=== PATIENT | female | born 1960 | race Hispanic/Latino ===

== ENCOUNTER 2017-06-24 17:29 | Inpatient (IN) | payer MEDICAID, OTHER ==
--- NOTE | 2017-06-24 17:49 | Emergency Department Report ---
ED General Adult HPI - General Stated complaint: RESPIRATORY ARREST Time Seen by Provider: 06/24/17 17:41 Source: EMS Mode of arrival: Stretcher Limitations: No Limitations - History of Present Illness Initial comments: A call went out to paramedics staff who arrives one half hour after the onset of the patient's symptoms. Paramedics state that the onset of the patient's symptoms was at approximately 1625. They do arrive and blue bagging the patient. They state that she did not become apneic but was hypoventilating just prior to their arrival so they initiated airway assist. They stated that the patient was poorly responsive at that time. They were called for an episode which consisted of difficulty in expressing herself (the patient) as well as global weakness. On their arrival the patient was able to speak but not fluently. She was able to tell them that she had a history of a heart attack and mitral valve prolapse. However just prior to arrival, she stopped communicating. They state that the patient was unable to hold things up with either hand. She had no apparent lateralizing sign. She had no facial weakness. Her speech was not specifically slurred. They did not witness any tonic-clonic movements. They also found the patient sugar to be approximately 150 and route to this facility. They state that her blood pressure on their arrival was quite elevated. However the patient's blood pressure as first measured here was just mildly elevated. On arrival the patient is having difficulty speaking. She speaks with a very low voice. She is able to follow commands to include bilateral hand grasp. She is not complaining of pain. The Ambu bag was removed and the patient was found to be spontaneously breathing. Her pulse oximetry was 100%. We raised her head up on the bed and continue her emergent workup. -: Sudden, This afternoon Associated Symptoms: weakness (generalized weakness) - Related Data Allergies Allergy/AdvReac Type Severity Reaction Status Date / Time Unable to Assess Allergy Unverified 06/24/17 17:45 ED Review of Systems ROS: Stated complaint: RESPIRATORY ARREST Other details as noted in HPI Comment: Unobtainable due to pts medical conditions ED Past Medical Hx - Past Medical History Additional medical history: "Myocardial infarction and mitral valve prolapse". - Social History Other Social History: Patient was at her work place when this event occurred. ED Physical Exam - General Limitations: Altered Mental Status General appearance: in no apparent distress, lethargic (mildly lethargic) - Head Head exam: Present: atraumatic, normocephalic - Eye Eye exam: Present: normal appearance, PERRL, EOMI. Absent: scleral icterus - ENT ENT exam: Present: mucous membranes moist - Neck Neck exam: Present: normal inspection, tenderness. Absent: meningismus - Respiratory Respiratory exam: Present: normal lung sounds bilaterally. Absent: respiratory distress - Cardiovascular Cardiovascular Exam: Present: regular rate, normal rhythm. Absent: systolic murmur, diastolic murmur, rubs, gallop - GI/Abdominal GI/Abdominal exam: Present: soft, normal bowel sounds. Absent: distended, tenderness, guarding, rebound, rigid - Extremities Exam Extremities exam: Present: normal inspection - Back Exam Back exam: Present: normal inspection - Neurological Exam Neurological exam: Present: altered, other (patient remains inadequately verbal. Her plantar response didn't seem to be slightly upgoing on the right and neutral on the left. She did hand grasp bilaterally.) - Psychiatric Psychiatric exam: Present: normal mood, flat affect - Skin Skin exam: Present: warm, dry, intact, normal color. Absent: rash ED Course Vital Signs 06/24/17 06/24/17 06/24/17 17:28 17:30 17:47 Temperature Pulse Rate 65 64 Respiratory 16 18 Rate Blood Pressure 143/79 134/72 Blood Pressure [Left] O2 Sat by Pulse 99 99 98 Oximetry 06/24/17 06/24/17 06/24/17 17:50 18:00 18:10 Temperature Pulse Rate 61 62 66 Respiratory 17 19 16 Rate Blood Pressure 135/62 135/62 140/60 Blood Pressure [Left] O2 Sat by Pulse 95 96 98 Oximetry 06/24/17 06/24/17 06/24/17 18:20 18:30 18:40 Temperature Pulse Rate 61 61 58 L Respiratory 18 22 10 L Rate Blood Pressure 140/60 142/50 142/50 Blood Pressure [Left] O2 Sat by Pulse 97 98 Oximetry 06/24/17 18:54 Temperature 98.0 F Pulse Rate 62 Respiratory 14 Rate Blood Pressure Blood Pressure 146/60 [Left] O2 Sat by Pulse 99 Oximetry - Reevaluation(s) Reevaluation #1: The patient's deficits are related to her dysreflexia. She knows her name her age some mild and can write this state I presume. She was able to write fluid sentences on a clipboard. She does have some degree of generalized weakness. I don't think it's focal. She certainly has enough prehensile strength to right notes. I did not find the patient's presentation consistent with a stroke syndrome. I obtained a consult from telemetry-neurologist. He stated that the patient could have alexia without agraphia. He did examine the patient with the robot. His conclusion was that the presentation was really quite odd. He did not think it was likely to be consistent with stroke. He told me that he discussed the risks and benefits of TPA with the patient. He states that the patient strongly refused TPA understanding the risks and benefits. He did recommend that we admit the patient to complete a standard stroke workup. I spoke to . The patient will be admitted to the hospitalist service for further care and evaluation. She had no problems with her airway or breathing while under observation in the emergency room. 06/24/17 19:18 06/24/17 19:21 ED Medical Decision Making - Lab Data Result diagrams: 06/24/17 Unknown 06/24/17 Unknown Laboratory Results - last 24 hr 06/24/17 06/24/17 06/24/17 18:03 18:03 18:08 WBC RBC Hgb Hct MCV MCH MCHC RDW Plt Count Lymph % (Auto) [place] % (Auto) Eos % (Auto) Baso % (Auto) Lymph # [place] # Eos # Baso # Seg Neutrophils % Seg Neutrophils # PT INR APTT Sodium Potassium Chloride Carbon Dioxide Anion Gap BUN Creatinine Estimated GFR BUN/Creatinine Ratio Glucose POC Glucose 124 H Lactic Acid 1.40 Calcium Total Bilirubin Direct Bilirubin Indirect Bilirubin AST ALT Alkaline Phosphatase Ammonia 45.0 Total Creatine Kinase Troponin T Total Protein Albumin Albumin/Globulin Ratio TSH Urine Color Urine Turbidity Urine pH Ur Specific [place] Urine Protein Urine Glucose (UA) Urine Ketones Urine Blood Urine Nitrite Urine Bilirubin Urine Urobilinogen Ur Leukocyte Esterase Urine WBC (Auto) Urine RBC (Auto) U Epithel Cells (Auto) Urine Mucus Plasma/Serum Alcohol 06/24/17 06/24/17 06/24/17 18:20 Unknown Unknown WBC 8.3 RBC 4.67 Hgb 14.5 H Hct 43.0 H MCV 92 MCH 31 MCHC 34 RDW 13.7 Plt Count 158 Lymph % (Auto) Transportation Engineering Technician [place] % (Auto) Transportation Engineering Technician Eos % (Auto) Transportation Engineering Technician Baso % (Auto) Transportation Engineering Technician Lymph # Transportation Engineering Technician [place] # Transportation Engineering Technician Eos # Transportation Engineering Technician Baso # Transportation Engineering Technician Seg Neutrophils % Transportation Engineering Technician Seg Neutrophils # Transportation Engineering Technician PT 12.7 INR 0.96 APTT 27.5 Sodium Potassium Chloride Carbon Dioxide Anion Gap BUN Creatinine Estimated GFR BUN/Creatinine Ratio Glucose POC Glucose Lactic Acid Calcium Total Bilirubin Direct Bilirubin Indirect Bilirubin AST ALT Alkaline Phosphatase Ammonia Total Creatine Kinase Troponin T Total Protein Albumin Albumin/Globulin Ratio TSH Urine Color Straw Urine Turbidity Clear Urine pH 6.0 Ur Specific [place] 1.005 Urine Protein <15 mg/dl Urine Glucose (UA) Neg Urine Ketones Neg Urine Blood Sm Urine Nitrite Neg Urine Bilirubin Neg Urine Urobilinogen < 2.0 Ur Leukocyte Esterase Neg Urine WBC (Auto) 1.0 Urine RBC (Auto) < 1.0 U Epithel Cells (Auto) 1.0 Urine Mucus Few Plasma/Serum Alcohol 06/24/17 06/24/17 06/24/17 Unknown Unknown Unknown WBC RBC Hgb Hct MCV MCH MCHC RDW Plt Count Lymph % (Auto) [place] % (Auto) Eos % (Auto) Baso % (Auto) Lymph # [place] # Eos # Baso # Seg Neutrophils % Seg Neutrophils # PT INR APTT Sodium 140 Potassium 4.1 Chloride 102.6 Carbon Dioxide 22 Anion Gap 20 BUN 14 Creatinine 0.8 Estimated GFR > 60 BUN/Creatinine Ratio 17.50 Glucose 123 H POC Glucose Lactic Acid Calcium 8.9 Total Bilirubin 0.20 Direct Bilirubin < 0.2 Indirect Bilirubin 0.0 AST 14 ALT 11 Alkaline Phosphatase 69 Ammonia Total Creatine Kinase 78 Troponin T < 0.010 Total Protein 6.4 Albumin 4.1 Albumin/Globulin Ratio 1.8 TSH 0.702 Urine Color Urine Turbidity Urine pH Ur Specific [place] Urine Protein Urine Glucose (UA) Urine Ketones Urine Blood Urine Nitrite Urine Bilirubin Urine Urobilinogen Ur Leukocyte Esterase Urine WBC (Auto) Urine RBC (Auto) U Epithel Cells (Auto) Urine Mucus Plasma/Serum Alcohol < 0.01 - EKG Data -: EKG Interpreted by Me EKG shows normal: sinus rhythm, axis, intervals, QRS complexes, ST-T waves Rate: normal - EKG Data Interpretation: other (somewhat low voltage tracing) - Radiology Data Radiology results: report reviewed interpreted by me: CT the head showed no acute intracranial process. Chest x-ray showed mild left basilar atelectasis. Hazy left hemidiaphragm consistent with discoid atelectasis. It is mild. Critical care attestation.: If time is entered above; I have spent that time in minutes in the direct care of this critically ill patient, excluding procedure time. ED Disposition Clinical Impression: Atelectasis of left lung Altered mental status Qualifiers: Altered mental status type: unspecified Qualified Code(s): R41.82 - Altered mental status, unspecified Speech disturbance Qualifiers: Speech disturbance type: unspecified speech disturbance Qualified Code(s): R47.9 - Unspecified speech disturbances Disposition: DC-09 OP ADMIT IP TO THIS HOSP Is pt being admited?: Yes Does the pt Need Aspirin: Yes Condition: Stable Time of Disposition: 19:23
[2017-06-24 17:56] LABS: INR 0.96 (0.87-1.13); Partial Thromboplastin Time 27.5 Sec. (24.2-36.6)
--- NOTE | 2017-06-24 17:56 | Cat Scan Report ---
FINAL REPORT EXAM: CT HEAD/BRAIN WO CON HISTORY: Altered Mental Status TECHNIQUE: CT of the head was performed. No intravenous contrast was administered. PRIORS: None. FINDINGS: There is no evidence of intracranial hemorrhage. There is no edema, mass effect or midline shift. There are no abnormal extra-axial fluid collections. The ventricles are appropriate for brain volume. There is no skull fracture seen. The visualized aspects of the sinuses are clear. IMPRESSION: There is no acute intracranial abnormality identified.
[2017-06-24 18:04] LABS: Hemoglobin 14.5 gm/dl (10.1-14.3); Mean Corpuscular HGB Conc 34 % (30-34); Mean Corpuscular Hemoglobin 31 pg (28-32); Mean Corpuscular Volume 92 fl (79-97); Platelet Count 158 K/mm3 (140-440); Red Blood Count 4.67 M/mm3 (3.65-5.03); Red Cell Distribution Width 13.7 % (13.2-15.2); White Blood Count 8.3 K/mm3 (4.5-11.0)
--- NOTE | 2017-06-24 18:14 | XRay Report ---
FINAL REPORT EXAM: XR CHEST 1V AP HISTORY: htn TECHNIQUE: Chest, portable semi upright PRIORS: None. FINDINGS: There is some left basilar atelectasis. Remaining lungs are clear. There is no pneumothorax or pleural effusion seen. There is no cardiomegaly or vascular congestion. IMPRESSION: Mild left basilar atelectasis. Otherwise no acute abnormality seen.
[2017-06-24 18:21] LABS: Alanine Aminotransferase 11 units/L (7-56); Albumin 4.1 g/dL (3.9-5); Albumin/Globulin Ratio 1.8 %; Alkaline Phosphatase 69 units/L (35-129); Anion Gap 20 mmol/L; Blood Urea Nitrogen 14 mg/dL (7-17); Calcium 8.9 mg/dL (8.4-10.2); Carbon Dioxide 22 mmol/L (22-30); Chloride 102.6 mmol/L (98-107); Creatine Kinase 78 units/L (30-135); Glucose 123 mg/dL (65-100); Potassium 4.1 mmol/L (3.6-5.0); Sodium 140 mmol/L (137-145); Total Protein 6.4 g/dL (6.3-8.2)
[2017-06-24 18:26] LABS: Bilirubin,Direct < 0.2 mg/dL (0-0.2)
[2017-06-24 18:52] LABS: Urine Drugs of Abuse Note Disclamer
[2017-06-24 19:10] LABS: Bilirubin,Urine NEG (Negative); Blood,Urine SM (Negative); Ketones,Urine NEG (Negative); Leukocyte Esterase,Urine NEG (Negative); Mucus,Urine FEW /HPF; Nitrite,Urine NEG (Negative); Protein,Urine <15 mg/dL mg/dL (Negative); RBC,Urine < 1.0 /HPF (0.0-6.0); Urobilinogen,Urine < 2.0 mg/dL (<2.0)
[2017-06-24] MEDS: ASPIRIN PO SCH (19:36)
--- NOTE | 2017-06-24 20:45 | History and Physical Report ---
History of Present Illness Date of examination: 06/24/17 Date of admission: 06/24/17 Chief complaint: CC: Unable to talk of sudden onset History of present illness: MANZANITA: Unable to talk of sudden onset.Able to move all 4 extremities and communicating in the ER by writing.Has normal expression and moves all 4 extremities.No SOB/ Fever .No chest pain. - Past Medical Hx Past Medical History Additional medical history: "Myocardial infarction and mitral valve prolapse". Social History Other Social History: Patient was at her work place when this event occurred. Surg HX Not available Fam HX not available Review of Systems ROS: Stated complaint: RESPIRATORY ARREST Other details as noted in HPI Comment: Unobtainable due to pts medical conditions Medications and Allergies Allergies Allergy/AdvReac Type Severity Reaction Status Date / Time pantoprazole sodium Allergy Severe Rash Verified 06/24/17 19:35 [From Protonix] omeprazole [From Prilosec] Allergy Rash Verified 06/24/17 19:35 omeprazole magnesium Allergy Rash Verified 06/24/17 19:35 [From Prilosec] emycin Allergy Severe Rash Uncoded 06/24/17 19:35 Home Medications Medication Instructions Recorded Confirmed Last Taken Type Metoprolol [Lopressor TAB] 50 mg PO BID 06/24/17 06/24/17 Unknown History Ranitidine HCl [Zantac 150 MG TAB] 150 mg PO DAILY 06/24/17 06/24/17 Unknown History traMADol [Ultram 50 MG tab] 50 mg PO BID PRN 06/24/17 06/24/17 06/21/17 History Active Meds: Active Medications Aspirin (Aspirin) 325 mg PO QDAY AMBERLY Last Admin: 06/24/17 19:36 Dose: Not Given Exam - Constitutional Vitals: Temp Pulse Resp BP Pulse Ox 98.0 F 62 14 146/60 99 06/24/17 18:54 06/24/17 18:54 06/24/17 18:54 06/24/17 18:54 06/24/17 18:54 General appearance: Present: no acute distress, well-nourished - EENT Eyes: Present: PERRL ENT: hearing intact, clear oral mucosa - Neck Neck: Present: supple, normal ROM - Respiratory Respiratory effort: normal Respiratory: bilateral: CTA - Cardiovascular Heart rate: 70 Rhythm: regular Heart Sounds: Present: S1 & S2. Absent: rub, click - Extremities Extremities: pulses symmetrical, No edema Peripheral Pulses: within normal limits - Abdominal General gastrointestinal: Present: soft, non-tender, non-distended, normal bowel sounds Female genitourinary: Present: normal - Integumentary Integumentary: Present: clear, warm, dry - Musculoskeletal Musculoskeletal: gait normal, strength equal bilaterally - Psychiatric Psychiatric: appropriate mood/affect, intact judgment & insight - Neurologic Neurologic: CNII-XII intact, moves all extremities, other (Aphasia) Results - Labs CBC & Chem 7: 06/25/17 07:19 06/25/17 07:19 Labs: Laboratory Last Values WBC 8.3 K/mm3 (4.5-11.0) 06/24/17 Unknown RBC 4.67 M/mm3 (3.65-5.03) 06/24/17 Unknown Hgb 14.5 gm/dl (10.1-14.3) H 06/24/17 Unknown Hct 43.0 % (30.3-42.9) H 06/24/17 Unknown MCV 92 fl (79-97) 06/24/17 Unknown MCH 31 pg (28-32) 06/24/17 Unknown MCHC 34 % (30-34) 06/24/17 Unknown RDW 13.7 % (13.2-15.2) 06/24/17 Unknown Plt Count 158 K/mm3 (140-440) 06/24/17 Unknown Lymph % (Auto) Shoe Patternmaker 06/24/17 Unknown [place] % (Auto) Shoe Patternmaker 06/24/17 Unknown Eos % (Auto) Shoe Patternmaker 06/24/17 Unknown Baso % (Auto) Shoe Patternmaker 06/24/17 Unknown Lymph # Shoe Patternmaker 06/24/17 Unknown [place] # Shoe Patternmaker 06/24/17 Unknown Eos # Shoe Patternmaker 06/24/17 Unknown Baso # Shoe Patternmaker 06/24/17 Unknown Seg Neutrophils % Shoe Patternmaker 06/24/17 Unknown Seg Neutrophils # Shoe Patternmaker 06/24/17 Unknown PT 12.7 Sec. (12.2-14.9) 06/24/17 Unknown INR 0.96 (0.87-1.13) 06/24/17 Unknown APTT 27.5 Sec. (24.2-36.6) 06/24/17 Unknown Sodium 140 mmol/L (137-145) 06/24/17 Unknown Potassium 4.1 mmol/L (3.6-5.0) 06/24/17 Unknown Chloride 102.6 mmol/L (98-107) 06/24/17 Unknown Carbon Dioxide 22 mmol/L (22-30) 06/24/17 Unknown Anion Gap 20 mmol/L 06/24/17 Unknown BUN 14 mg/dL (7-17) 06/24/17 Unknown Creatinine 0.8 mg/dL (0.7-1.2) 06/24/17 Unknown Estimated GFR > 60 ml/min 06/24/17 Unknown BUN/Creatinine Ratio 17.50 % 06/24/17 Unknown Glucose 123 mg/dL (65-100) H 06/24/17 Unknown POC Glucose 124 (70-105) H 06/24/17 18:08 Lactic Acid 1.40 mmol/L (0.7-2.0) 06/24/17 18:03 Calcium 8.9 mg/dL (8.4-10.2) 06/24/17 Unknown Total Bilirubin 0.20 mg/dL (0.1-1.2) 06/24/17 Unknown Direct Bilirubin < 0.2 mg/dL (0-0.2) 06/24/17 Unknown Indirect Bilirubin 0.0 mg/dL 06/24/17 Unknown AST 14 units/L (5-40) 06/24/17 Unknown ALT 11 units/L (7-56) 06/24/17 Unknown Alkaline Phosphatase 69 units/L (35-129) 06/24/17 Unknown Ammonia 45.0 umol/L (25-60) 06/24/17 18:03 Total Creatine Kinase 78 units/L (30-135) 06/24/17 Unknown Troponin T < 0.010 ng/mL (0.00-0.029) 06/24/17 Unknown Total Protein 6.4 g/dL (6.3-8.2) 06/24/17 Unknown Albumin 4.1 g/dL (3.9-5) 06/24/17 Unknown Albumin/Globulin Ratio 1.8 % 06/24/17 Unknown TSH 0.702 mlU/mL (0.270-4.200) 06/24/17 Unknown Urine Color Straw (Yellow) 06/24/17 18:20 Urine Turbidity Clear (Clear) 06/24/17 18:20 Urine pH 6.0 (5.0-7.0) 06/24/17 18:20 Ur Specific [place] 1.005 (1.003-1.030) 06/24/17 18:20 Urine Protein <15 mg/dl mg/dL (Negative) 06/24/17 18:20 Urine Glucose (UA) Neg mg/dL (Negative) 06/24/17 18:20 Urine Ketones Neg mg/dL (Negative) 06/24/17 18:20 Urine Blood Sm (Negative) 06/24/17 18:20 Urine Nitrite Neg (Negative) 06/24/17 18:20 Urine Bilirubin Neg (Negative) 06/24/17 18:20 Urine Urobilinogen < 2.0 mg/dL (<2.0) 06/24/17 18:20 Ur Leukocyte Esterase Neg (Negative) 06/24/17 18:20 Urine WBC (Auto) 1.0 /HPF (0.0-6.0) 06/24/17 18:20 Urine RBC (Auto) < 1.0 /HPF (0.0-6.0) 06/24/17 18:20 U Epithel Cells (Auto) 1.0 /HPF (0-13.0) 06/24/17 18:20 Urine Mucus Few /HPF 06/24/17 18:20 Urine Opiates Screen Presumptive negative 06/24/17 18:20 Urine Methadone Screen Presumptive negative 06/24/17 18:20 Ur Barbiturates Screen Presumptive negative 06/24/17 18:20 Ur Phencyclidine Scrn Presumptive negative 06/24/17 18:20 Ur Amphetamines Screen Presumptive negative 06/24/17 18:20 U Benzodiazepines Scrn Presumptive negative 06/24/17 18:20 Urine Cocaine Screen Presumptive negative 06/24/17 18:20 U Marijuana (THC) Screen Presumptive negative 06/24/17 18:20 Drugs of Abuse Note Disclamer 06/24/17 18:20 Plasma/Serum Alcohol < 0.01 gm% (0-0.07) 06/24/17 Unknown Short CBC 06/24/17 06/25/17 Range/Units Unknown 07:19 WBC 8.3 6.9 (4.5-11.0) K/mm3 Hgb 14.5 H 13.6 (10.1-14.3) gm/dl Hct 43.0 H 41.1 (30.3-42.9) % Plt Count 158 150 (140-440) K/mm3 BMP 06/24/17 06/25/17 Unknown 07:19 Sodium 140 141 Potassium 4.1 3.8 Chloride 102.6 105.5 Carbon Dioxide 22 25 BUN 14 11 Creatinine 0.8 0.8 Glucose 123 H 131 H Calcium 8.9 8.3 L Cardiac Enzymes 06/24/17 Range/Units Unknown Total Creatine Kinase 78 (30-135) units/L Troponin T < 0.010 (0.00-0.029) ng/mL Liver Function 06/24/17 06/25/17 Range/Units Unknown 07:19 Total Bilirubin 0.20 0.50 (0.1-1.2) mg/dL Direct Bilirubin < 0.2 (0-0.2) mg/dL AST 14 14 (5-40) units/L ALT 11 9 (7-56) units/L Alkaline Phosphatase 69 56 (35-129) units/L Albumin 4.1 3.3 L (3.9-5) g/dL Urine 06/24/17 Range/Units 18:20 Urine Color Straw (Yellow) Urine pH 6.0 (5.0-7.0) Ur Specific [place] 1.005 (1.003-1.030) Urine Protein <15 mg/dl (Negative) mg/dL Urine Glucose (UA) Neg (Negative) mg/dL - Imaging and Cardiology EKG: report reviewed CT Scan - head: report reviewed Assessment and Plan Advance Directives: Yes (FC) VTE prophylaxis?: Chemical Plan of care discussed with patient/family: Yes - Patient Problems (1) Altered mental status Current Visit: Yes Status: Acute Qualifiers: Altered mental status type: unspecified Coma depth: C Coma timing: C Qualified Code(s): R41.82 - Altered mental status, unspecified Plan to address problem: Etio onclear ??Conversion reaction (2) CVA (cerebral vascular accident) Current Visit: Yes Status: Acute Qualifiers: CVA mechanism: C Precerebral and cerebral artery: P Laterality of affected vessel: unspecified Plan to address problem: CVA work up.in the form of MRI/MRA ECHO/CDS I am in more favor of conversion reaction. (3) DVT prophylaxis Current Visit: Yes Status: Acute Plan to address problem: On Lovenox 40 mg sq qd
[2017-06-24] MEDS ORDERED: DULCOLAX PR PRN (20:46)
[2017-06-24] MEDS ORDERED: TYLENOL PO PRN (20:46)
[2017-06-24] MEDS ORDERED: DILAUDID IV PRN (20:46)
[2017-06-24] MEDS ORDERED: MILK OF MAGNESIA PO PRN (20:46)
[2017-06-24] MEDS ORDERED: ZOFRAN IV PRN (20:46)
[2017-06-24] MEDS ORDERED: SODIUM CHLORIDE FLUSH SYRINGE 10 ML IV PRN (20:49)
[2017-06-24] MEDS: ZOCOR PO SCH (21:36)
[2017-06-24] MEDS: LOVENOX SUB-Q SCH (21:36)
[2017-06-24] MEDS: PEPCID PO SCH (21:36)
[2017-06-24] MEDS: PERCOCET 5/325 PO PRN (23:41)
[2017-06-24] MEDS: D5NS 1,000 ML IV SCH (23:45)
[2017-06-25] MEDS: PERCOCET 5/325 PO PRN ×3 (06:07→21:36)
[2017-06-25] MEDS: PEPCID PO SCH ×3 (08:05→21:37)
[2017-06-25 08:17] LABS: Hematocrit 41.1 % (30.3-42.9); Hemoglobin 13.6 gm/dl (10.1-14.3); Mean Corpuscular HGB Conc 33 % (30-34); Mean Corpuscular Hemoglobin 31 pg (28-32); Mean Corpuscular Volume 94 fl (79-97); Platelet Count 150 K/mm3 (140-440); Red Blood Count 4.39 M/mm3 (3.65-5.03); Red Cell Distribution Width 13.7 % (13.2-15.2); White Blood Count 6.9 K/mm3 (4.5-11.0)
[2017-06-25 08:29] LABS: Alanine Aminotransferase 9 units/L (7-56); Albumin 3.3 g/dL (3.9-5); Albumin/Globulin Ratio 1.4 %; Alkaline Phosphatase 56 units/L (35-129); Anion Gap 14 mmol/L; BUN/Creatinine Ratio 13.75; Blood Urea Nitrogen 11 mg/dL (7-17); Calcium 8.3 mg/dL (8.4-10.2); Carbon Dioxide 25 mmol/L (22-30); Chloride 105.5 mmol/L (98-107); Cholesterol 123 mg/dL (50-199); Glucose 131 mg/dL (65-100); HDL Cholesterol 32 mg/dL (40-59); LDL Cholesterol,Direct 74 mg/dL (50-130); Potassium 3.8 mmol/L (3.6-5.0); Sodium 141 mmol/L (137-145); Total Protein 5.6 g/dL (6.3-8.2); Triglycerides 85 mg/dL (2-149)
[2017-06-25] MEDS: ASPIRIN PO SCH (09:22)
[2017-06-25] MEDS: LOVENOX SUB-Q SCH (09:33)
[2017-06-25] MEDS: D5NS 1,000 ML IV SCH ×2 (09:35→23:00)
[2017-06-25] MEDS ORDERED: TOPROL XL PO SCH ×2 (10:00)
--- NOTE | 2017-06-25 10:31 | Progress Note ---
Assessment and Plan Assessment and plan: Acute CVA. Cont. CVA work up. CT negative. F/U MRI/MRA, ECHO and Carotid Dopplers. Neurology consultation. Encephalopathy. Etiology secondary to above. DVT prophylaxis. Cont. Lovenox. History Interval history: Pt. still nonnerbal. No new issues Hospitalist Physical - Constitutional Vitals: Temp Pulse Resp BP Pulse Ox 98.7 F 54 L 18 105/60 97 06/25/17 08:00 06/25/17 08:00 06/25/17 08:00 06/25/17 08:00 06/25/17 08:00 General appearance: Present: no acute distress, well-nourished - EENT Eyes: Present: PERRL, EOM intact ENT: hearing intact, clear oral mucosa, dentition normal - Neck Neck: Present: supple, normal ROM - Respiratory Respiratory effort: normal Respiratory: bilateral: CTA - Cardiovascular Rhythm: regular Heart Sounds: Present: S1 & S2. Absent: gallop, rub - Extremities Extremities: no ischemia, No edema, Full ROM - Abdominal General gastrointestinal: soft, non-tender, non-distended, normal bowel sounds - Integumentary Integumentary: Present: clear, warm, dry - Neurologic Neurologic: CNII-XII intact, moves all extremities Results - Labs CBC & Chem 7: 06/25/17 07:19 06/25/17 07:19 Labs: Laboratory Last Values WBC 6.9 K/mm3 (4.5-11.0) 06/25/17 07:19 RBC 4.39 M/mm3 (3.65-5.03) 06/25/17 07:19 Hgb 13.6 gm/dl (10.1-14.3) 06/25/17 07:19 Hct 41.1 % (30.3-42.9) 06/25/17 07:19 MCV 94 fl (79-97) 06/25/17 07:19 MCH 31 pg (28-32) 06/25/17 07:19 MCHC 33 % (30-34) 06/25/17 07:19 RDW 13.7 % (13.2-15.2) 06/25/17 07:19 Plt Count 150 K/mm3 (140-440) 06/25/17 07:19 Lymph % (Auto) Adoption Counselor 06/24/17 Unknown [place] % (Auto) Adoption Counselor 06/24/17 Unknown Eos % (Auto) Adoption Counselor 06/24/17 Unknown Baso % (Auto) Adoption Counselor 06/24/17 Unknown Lymph # Adoption Counselor 06/24/17 Unknown [place] # Adoption Counselor 06/24/17 Unknown Eos # Adoption Counselor 06/24/17 Unknown Baso # Adoption Counselor 06/24/17 Unknown Seg Neutrophils % Adoption Counselor 06/25/17 07:19 Seg Neutrophils # Adoption Counselor 06/24/17 Unknown PT 12.7 Sec. (12.2-14.9) 06/24/17 Unknown INR 0.96 (0.87-1.13) 06/24/17 Unknown APTT 27.5 Sec. (24.2-36.6) 06/24/17 Unknown Sodium 141 mmol/L (137-145) 06/25/17 07:19 Potassium 3.8 mmol/L (3.6-5.0) 06/25/17 07:19 Chloride 105.5 mmol/L (98-107) 06/25/17 07:19 Carbon Dioxide 25 mmol/L (22-30) 06/25/17 07:19 Anion Gap 14 mmol/L 06/25/17 07:19 BUN 11 mg/dL (7-17) 06/25/17 07:19 Creatinine 0.8 mg/dL (0.7-1.2) 06/25/17 07:19 Estimated GFR > 60 ml/min 06/25/17 07:19 BUN/Creatinine Ratio 13.75 % 06/25/17 07:19 Glucose 131 mg/dL (65-100) H 06/25/17 07:19 POC Glucose 124 (70-105) H 06/24/17 18:08 Lactic Acid 1.40 mmol/L (0.7-2.0) 06/24/17 18:03 Calcium 8.3 mg/dL (8.4-10.2) L 06/25/17 07:19 Total Bilirubin 0.50 mg/dL (0.1-1.2) 06/25/17 07:19 Direct Bilirubin < 0.2 mg/dL (0-0.2) 06/24/17 Unknown Indirect Bilirubin 0.0 mg/dL 06/24/17 Unknown AST 14 units/L (5-40) 06/25/17 07:19 ALT 9 units/L (7-56) 06/25/17 07:19 Alkaline Phosphatase 56 units/L (35-129) 06/25/17 07:19 Ammonia 45.0 umol/L (25-60) 06/24/17 18:03 Total Creatine Kinase 78 units/L (30-135) 06/24/17 Unknown Troponin T < 0.010 ng/mL (0.00-0.029) 06/24/17 Unknown Total Protein 5.6 g/dL (6.3-8.2) L 06/25/17 07:19 Albumin 3.3 g/dL (3.9-5) L 06/25/17 07:19 Albumin/Globulin Ratio 1.4 % 06/25/17 07:19 Triglycerides 85 mg/dL (2-149) 06/25/17 07:19 Cholesterol 123 mg/dL (50-199) 06/25/17 07:19 LDL Cholesterol Direct 74 mg/dL (50-130) 06/25/17 07:19 HDL Cholesterol 32 mg/dL (40-59) L 06/25/17 07:19 Cholesterol/HDL Ratio 3.84 % 06/25/17 07:19 TSH 0.702 mlU/mL (0.270-4.200) 06/24/17 Unknown Urine Color Straw (Yellow) 06/24/17 18:20 Urine Turbidity Clear (Clear) 06/24/17 18:20 Urine pH 6.0 (5.0-7.0) 06/24/17 18:20 Ur Specific [place] 1.005 (1.003-1.030) 06/24/17 18:20 Urine Protein <15 mg/dl mg/dL (Negative) 06/24/17 18:20 Urine Glucose (UA) Neg mg/dL (Negative) 06/24/17 18:20 Urine Ketones Neg mg/dL (Negative) 06/24/17 18:20 Urine Blood Sm (Negative) 06/24/17 18:20 Urine Nitrite Neg (Negative) 06/24/17 18:20 Urine Bilirubin Neg (Negative) 06/24/17 18:20 Urine Urobilinogen < 2.0 mg/dL (<2.0) 06/24/17 18:20 Ur Leukocyte Esterase Neg (Negative) 06/24/17 18:20 Urine WBC (Auto) 1.0 /HPF (0.0-6.0) 06/24/17 18:20 Urine RBC (Auto) < 1.0 /HPF (0.0-6.0) 06/24/17 18:20 U Epithel Cells (Auto) 1.0 /HPF (0-13.0) 06/24/17 18:20 Urine Mucus Few /HPF 06/24/17 18:20 Urine Opiates Screen Presumptive negative 06/24/17 18:20 Urine Methadone Screen Presumptive negative 06/24/17 18:20 Ur Barbiturates Screen Presumptive negative 06/24/17 18:20 Ur Phencyclidine Scrn Presumptive negative 06/24/17 18:20 Ur Amphetamines Screen Presumptive negative 06/24/17 18:20 U Benzodiazepines Scrn Presumptive negative 06/24/17 18:20 Urine Cocaine Screen Presumptive negative 06/24/17 18:20 U Marijuana (THC) Screen Presumptive negative 06/24/17 18:20 Drugs of Abuse Note Disclamer 06/24/17 18:20 Plasma/Serum Alcohol < 0.01 gm% (0-0.07) 06/24/17 Unknown
[2017-06-25 11:33] LABS: Anisocytosis 1+; Blastocytes % (Manual) 0 %; Diff Status Complete; Platelet Estimate Consistent w Auto
--- NOTE | 2017-06-25 12:24 | Magnetic Resonance Report ---
MRI scan of brain: History: Stroke. Technique: Multiplanar, multisequence images were obtained without contrast injection. Findings: No evidence of restricted diffusion. Ventricles are normal in size and midline in location. No evidence of acute ischemia, hemorrhage or mass. Small chronic lacunar infarct right basal ganglia. No extra-axial fluid collection. Normal brainstem and cerebellum. Normal sinuses and mastoid air cells. Impression: No acute intracranial abnormality. Small chronic lacunar infarct right basal ganglia.
--- NOTE | 2017-06-25 12:26 | Magnetic Resonance Report ---
MRA of brain with 3-D image post processing: History: Stroke. Findings: The vessels of [place] are widely patent. No evidence of stenosis occlusion aneurysm or dissection. Codominant vertebral arteries with normal basilar artery. Normal posterior cerebral arteries. Hypoplastic posterior communicating arteries. Impression: Essentially negative MRA of brain.
[2017-06-25] MEDS: LOPRESSOR PO SCH ×2 (13:39→21:37)
[2017-06-25] MEDS: ZOCOR PO SCH (21:37)
--- NOTE | 2017-06-26 01:44 | Admit Criteria Form ---
Admission Criteria Documentation: MENTAL STATUS CHANGE Clinical Indications for Inpatient Care (Place 'X' for any and all applicable criteria): Ongoing inpatient care may be needed for 1 or more of the following(1)(2)(3)(5)( 6): [X]I. Suspected serious etiology (eg, medical disorder, SITE SURVEYOR event) of altered mental status [ ]II. Danger to self or others not manageable at lower level of care [ ]III. Grave disability (eg, inability to perform self care necessary at lower level of care) [ ]IV. Agitation or inappropriate behavior interfering with care for primary condition (eg, attempting to discontinue lines or drains prematurely, unable to cooperate with respiratory care) [ ]V. Delirium [A] [D][E] as described by 1 or more of the following(26): [ ]a) Delirium due to alcohol or sedative [F] withdrawal [ ]b) Delirium of uncertain etiology that has not responded to appropriate empiric treatment [ ]c) Delirium that prevents performance of a life-sustaining function (eg, feeding or hydrating oneself) [ ]. General contraindications and/or Inappropriate clinical situations for Observational Care in patients with Mental Status Change, when ANY ONE of the following is required: [ ]a) Prediction of prolongation of LOS based on ANY ONE of the following may be considered as a contraindication for observational care 2, 3, 4, 5, 6, 7, 8, 9, 10, 11 [ ]i) Age > 65 yrs. [ ]ii) Patient arriving by ambulance [ ]iii) Patient with high acuity [ ]iv) Patient requiring vital sign monitoring [ ]v) Patient on IV medication [ ]b) Systolic blood pressures greater than or equal to 180mmHg 3, 12 [ ]c) Patient with altered mental status including delirium and other alteration of consciousness, (3) [ ]d) Patient whose discharge disposition will be to a [facility] home or rehabilitation home should not be managed in Emergency Department Observation Unit. CMS rule requires 3 days hospital stay before such placement.3,13 [ ]e) Patient with failure to thrive due to broad array of etiologies 3,16,17 [ ]f) Inability to ambulate 3,14 Extended stay beyond goal length of stay for the primary condition may be needed until ALL of the following are present(3)(5): [ ]a) Underlying medical etiology of mental status change is absent, or has been established and adequately treated [ ]b) Danger to self or others is absent or manageable at lower level of care. [ ]c) Behavior crisis management, including physical or chemical restraints, is not required or available at lower level of car [ ]d) Substance or alcohol withdrawal is absent or manageable at lower level of care. [ ]e) Behavioral symptoms (eg, agitation, somnolence, inappropriate behavior) are absent, or are manageable at lower level of care. The original [facility] [employer] content created by [facility] [employer] has been revised. The portions of the content which have been revised are identified through the use of italic text or in bold, and [facility] has neither reviewed nor approved the modified material. All other unmodified content is copyright [facility] [employer]. Please see references footnoted in the original [facility] edition 2016 Admission Criteria Met: Yes
[2017-06-26 08:14] LABS: Hematocrit 41.1 % (30.3-42.9); Hemoglobin 13.3 gm/dl (10.1-14.3); Mean Corpuscular HGB Conc 32 % (30-34); Mean Corpuscular Hemoglobin 31 pg (28-32); Mean Corpuscular Volume 95 fl (79-97); Platelet Count 148 K/mm3 (140-440); Red Blood Count 4.34 M/mm3 (3.65-5.03); Red Cell Distribution Width 13.8 % (13.2-15.2); White Blood Count 6.7 K/mm3 (4.5-11.0)
[2017-06-26 08:28] LABS: Anion Gap 14 mmol/L; BUN/Creatinine Ratio 17.14; Blood Urea Nitrogen 12 mg/dL (7-17); Calcium 7.9 mg/dL (8.4-10.2); Carbon Dioxide 21 mmol/L (22-30); Glucose 101 mg/dL (65-100); Potassium 3.8 mmol/L (3.6-5.0); Sodium 143 mmol/L (137-145)
[2017-06-26 08:56] LABS: Anisocytosis 1+; Basophils % (Manual) 0 % (0.0-1.8); Blastocytes % (Manual) 0 %
[2017-06-26 08:57] LABS: Burr Cells Rare; Diff Status Complete; Ovalocytes Rare; Platelet Estimate Consistent w Auto
[2017-06-26] MEDS: PERCOCET 5/325 PO PRN ×2 (09:08→18:17)
[2017-06-26] MEDS: ASPIRIN PO SCH (09:08)
[2017-06-26] MEDS: LOVENOX SUB-Q SCH (09:09)
[2017-06-26] MEDS: PEPCID PO SCH ×2 (09:09→21:49)
[2017-06-26] MEDS: D5NS 1,000 ML IV SCH ×2 (09:10→18:38)
[2017-06-26] MEDS: LOPRESSOR PO SCH ×2 (09:17→21:50)
--- NOTE | 2017-06-26 09:40 | Progress Note ---
Assessment and Plan Assessment and plan: Acute CVA. Cont. CVA work up. CT negative. MRI revealed right chronic lacunar infarct but no acute abnormality. Carotid duplex was treated less than 50% stenosis bilaterally. Echocardiogram pending. Neurology consultation. Await PT and speech evaluations. Encephalopathy. Etiology secondary to above. DVT prophylaxis. Cont. Lovenox. History Interval history: Pt. able to communicate verbally. No new issues Hospitalist Physical - Constitutional Vitals: Temp Pulse Resp BP Pulse Ox 98.2 F 74 18 117/56 98 06/26/17 08:24 06/26/17 09:20 06/26/17 09:20 06/26/17 09:17 06/26/17 08:24 General appearance: Present: no acute distress, well-nourished - EENT Eyes: Present: PERRL, EOM intact ENT: hearing intact, clear oral mucosa, dentition normal - Neck Neck: Present: supple, normal ROM - Respiratory Respiratory effort: normal Respiratory: bilateral: CTA - Cardiovascular Rhythm: regular Heart Sounds: Present: S1 & S2. Absent: gallop, rub - Extremities Extremities: no ischemia, No edema, Full ROM - Abdominal General gastrointestinal: soft, non-tender, non-distended, normal bowel sounds - Integumentary Integumentary: Present: clear, warm, dry - Neurologic Neurologic: CNII-XII intact, moves all extremities Results - Labs CBC & Chem 7: 06/26/17 07:01 06/26/17 07:01 Labs: Laboratory Last Values WBC 6.7 K/mm3 (4.5-11.0) 06/26/17 07:01 RBC 4.34 M/mm3 (3.65-5.03) 06/26/17 07:01 Hgb 13.3 gm/dl (10.1-14.3) 06/26/17 07:01 Hct 41.1 % (30.3-42.9) 06/26/17 07:01 MCV 95 fl (79-97) 06/26/17 07:01 MCH 31 pg (28-32) 06/26/17 07:01 MCHC 32 % (30-34) 06/26/17 07:01 RDW 13.8 % (13.2-15.2) 06/26/17 07:01 Plt Count 148 K/mm3 (140-440) 06/26/17 07:01 Lymph % (Auto) Production Control Analyst 06/24/17 Unknown Pettis % (Auto) Production Control Analyst 06/24/17 Unknown Eos % (Auto) Production Control Analyst 06/24/17 Unknown Baso % (Auto) Production Control Analyst 06/24/17 Unknown Lymph # Production Control Analyst 06/24/17 Unknown Pettis # Production Control Analyst 06/24/17 Unknown Eos # Production Control Analyst 06/24/17 Unknown Baso # Production Control Analyst 06/24/17 Unknown Add Manual Diff Complete 06/26/17 07:01 Total Counted 100 06/26/17 07:01 Seg Neutrophils % Production Control Analyst 06/26/17 07:01 Seg Neuts % (Manual) 40.0 % (40.0-70.0) 06/26/17 07:01 Band Neutrophils % 0 % 06/26/17 07:01 Lymphocytes % (Manual) 49.0 % (13.4-35.0) H 06/26/17 07:01 Reactive Lymphs % (Man) 0 % 06/26/17 07:01 Monocytes % (Manual) 7.0 % (0.0-7.3) 06/26/17 07:01 Eosinophils % (Manual) 4.0 % (0.0-4.3) 06/26/17 07:01 Basophils % (Manual) 0 % (0.0-1.8) 06/26/17 07:01 Metamyelocytes % 0 % 06/26/17 07:01 Myelocytes % 0 % 06/26/17 07:01 Promyelocytes % 0 % 06/26/17 07:01 Blast Cells % 0 % 06/26/17 07:01 Nucleated RBC % Not Reportable 06/26/17 07:01 Seg Neutrophils # Production Control Analyst 06/24/17 Unknown Seg Neutrophils # Man 2.7 K/mm3 (1.8-7.7) 06/26/17 07:01 Band Neutrophils # 0.0 K/mm3 06/26/17 07:01 Lymphocytes # (Manual) 3.3 K/mm3 (1.2-5.4) 06/26/17 07:01 Abs React Lymphs (Man) 0.0 K/mm3 06/26/17 07:01 Monocytes # (Manual) 0.5 K/mm3 (0.0-0.8) 06/26/17 07:01 Eosinophils # (Manual) 0.3 K/mm3 (0.0-0.4) 06/26/17 07:01 Basophils # (Manual) 0.0 K/mm3 (0.0-0.1) 06/26/17 07:01 Metamyelocytes # 0.0 K/mm3 06/26/17 07:01 Myelocytes # 0.0 K/mm3 06/26/17 07:01 Promyelocytes # 0.0 K/mm3 06/26/17 07:01 Blast Cells # 0.0 K/mm3 06/26/17 07:01 WBC Morphology Not Reportable 06/26/17 07:01 Hypersegmented Neuts Not Reportable 06/26/17 07:01 Hyposegmented Neuts Not Reportable 06/26/17 07:01 Hypogranular Neuts Not Reportable 06/26/17 07:01 Smudge Cells Not Reportable 06/26/17 07:01 Toxic Granulation Not Reportable 06/26/17 07:01 Toxic Vacuolation Not Reportable 06/26/17 07:01 Dohle Bodies Not Reportable 06/26/17 07:01 Pelger-Huet Anomaly Not Reportable 06/26/17 07:01 Dwight Rods Not Reportable 06/26/17 07:01 Platelet Estimate Consistent w auto 06/26/17 07:01 Clumped Platelets Not Reportable 06/26/17 07:01 Plt Clumps, EDTA Not Reportable 06/26/17 07:01 Large Platelets Not Reportable 06/26/17 07:01 Giant Platelets Not Reportable 06/26/17 07:01 Platelet Satelliting Not Reportable 06/26/17 07:01 Plt Morphology Comment Not Reportable 06/26/17 07:01 RBC Morphology Not Reportable 06/26/17 07:01 Dimorphic RBCs Not Reportable 06/26/17 07:01 Polychromasia Not Reportable 06/26/17 07:01 Hypochromasia Not Reportable 06/26/17 07:01 Poikilocytosis Not Reportable 06/26/17 07:01 Anisocytosis 1+ 06/26/17 07:01 Microcytosis Not Reportable 06/26/17 07:01 Macrocytosis Not Reportable 06/26/17 07:01 Spherocytes Not Reportable 06/26/17 07:01 Pappenheimer Bodies Not Reportable 06/26/17 07:01 Sickle Cells Not Reportable 06/26/17 07:01 Target Cells Not Reportable 06/26/17 07:01 Tear Drop Cells Not Reportable 06/26/17 07:01 Ovalocytes Rare 06/26/17 07:01 Helmet Cells Not Reportable 06/26/17 07:01 [place] Bodies Not Reportable 06/26/17 07:01 Wynne Rings Not Reportable 06/26/17 07:01 Adelfo Cells Rare 06/26/17 07:01 Bite Cells Not Reportable 06/26/17 07:01 Crenated Cell Not Reportable 06/26/17 07:01 Elliptocytes Not Reportable 06/26/17 07:01 Acanthocytes (Spur) Not Reportable 06/26/17 07:01 Rouleaux Not Reportable 06/26/17 07:01 Hemoglobin C Crystals Not Reportable 06/26/17 07:01 Schistocytes Not Reportable 06/26/17 07:01 Malaria parasites Not Reportable 06/26/17 07:01 Froylan Bodies Not Reportable 06/26/17 07:01 Hem Pathologist Commnt No 06/26/17 07:01 PT 12.7 Sec. (12.2-14.9) 06/24/17 Unknown INR 0.96 (0.87-1.13) 06/24/17 Unknown APTT 27.5 Sec. (24.2-36.6) 06/24/17 Unknown Sodium 143 mmol/L (137-145) 06/26/17 07:01 Potassium 3.8 mmol/L (3.6-5.0) 06/26/17 07:01 Chloride 112.0 mmol/L (98-107) H 06/26/17 07:01 Carbon Dioxide 21 mmol/L (22-30) L 06/26/17 07:01 Anion Gap 14 mmol/L 06/26/17 07:01 BUN 12 mg/dL (7-17) 06/26/17 07:01 Creatinine 0.7 mg/dL (0.7-1.2) 06/26/17 07:01 Estimated GFR > 60 ml/min 06/26/17 07:01 BUN/Creatinine Ratio 17.14 % 06/26/17 07:01 Glucose 101 mg/dL (65-100) H 06/26/17 07:01 POC Glucose 124 (70-105) H 06/24/17 18:08 Lactic Acid 1.40 mmol/L (0.7-2.0) 06/24/17 18:03 Calcium 7.9 mg/dL (8.4-10.2) L 06/26/17 07:01 Total Bilirubin 0.50 mg/dL (0.1-1.2) 06/25/17 07:19 Direct Bilirubin < 0.2 mg/dL (0-0.2) 06/24/17 Unknown Indirect Bilirubin 0.0 mg/dL 06/24/17 Unknown AST 14 units/L (5-40) 06/25/17 07:19 ALT 9 units/L (7-56) 06/25/17 07:19 Alkaline Phosphatase 56 units/L (35-129) 06/25/17 07:19 Ammonia 45.0 umol/L (25-60) 06/24/17 18:03 Total Creatine Kinase 78 units/L (30-135) 06/24/17 Unknown Troponin T < 0.010 ng/mL (0.00-0.029) 06/24/17 Unknown Total Protein 5.6 g/dL (6.3-8.2) L 06/25/17 07:19 Albumin 3.3 g/dL (3.9-5) L 06/25/17 07:19 Albumin/Globulin Ratio 1.4 % 06/25/17 07:19 Triglycerides 85 mg/dL (2-149) 06/25/17 07:19 Cholesterol 123 mg/dL (50-199) 06/25/17 07:19 LDL Cholesterol Direct 74 mg/dL (50-130) 06/25/17 07:19 HDL Cholesterol 32 mg/dL (40-59) L 06/25/17 07:19 Cholesterol/HDL Ratio 3.84 % 06/25/17 07:19 TSH 0.702 mlU/mL (0.270-4.200) 06/24/17 Unknown Urine Color Straw (Yellow) 06/24/17 18:20 Urine Turbidity Clear (Clear) 06/24/17 18:20 Urine pH 6.0 (5.0-7.0) 06/24/17 18:20 Ur Specific [place] 1.005 (1.003-1.030) 06/24/17 18:20 Urine Protein <15 mg/dl mg/dL (Negative) 06/24/17 18:20 Urine Glucose (UA) Neg mg/dL (Negative) 06/24/17 18:20 Urine Ketones Neg mg/dL (Negative) 06/24/17 18:20 Urine Blood Sm (Negative) 06/24/17 18:20 Urine Nitrite Neg (Negative) 06/24/17 18:20 Urine Bilirubin Neg (Negative) 06/24/17 18:20 Urine Urobilinogen < 2.0 mg/dL (<2.0) 06/24/17 18:20 Ur Leukocyte Esterase Neg (Negative) 06/24/17 18:20 Urine WBC (Auto) 1.0 /HPF (0.0-6.0) 06/24/17 18:20 Urine RBC (Auto) < 1.0 /HPF (0.0-6.0) 06/24/17 18:20 U Epithel Cells (Auto) 1.0 /HPF (0-13.0) 06/24/17 18:20 Urine Mucus Few /HPF 06/24/17 18:20 Urine Opiates Screen Presumptive negative 06/24/17 18:20 Urine Methadone Screen Presumptive negative 06/24/17 18:20 Ur Barbiturates Screen Presumptive negative 06/24/17 18:20 Ur Phencyclidine Scrn Presumptive negative 06/24/17 18:20 Ur Amphetamines Screen Presumptive negative 06/24/17 18:20 U Benzodiazepines Scrn Presumptive negative 06/24/17 18:20 Urine Cocaine Screen Presumptive negative 06/24/17 18:20 U Marijuana (THC) Screen Presumptive negative 06/24/17 18:20 Drugs of Abuse Note Disclamer 06/24/17 18:20 Plasma/Serum Alcohol < 0.01 gm% (0-0.07) 06/24/17 Unknown
[2017-06-26] MEDS ORDERED: ANTIVERT PO PRN (10:00)
[2017-06-26] MEDS: ZOCOR PO SCH (21:49)
[2017-06-27] MEDS: D5NS 1,000 ML IV SCH (04:37)
--- NOTE | 2017-06-27 08:39 | Discharge Summary ---
Providers - Providers Date of Admission: 06/24/17 20:46 Date of discharge: 06/27/17 Attending physician: WENDY RAI 06/24/17 Consult to Physician [CONS] Routine Consulting Provider: MAHESH ANDINO Reason For Exam: [place]ph[place] consult to:: dr. andino Notified:: answer service Phone number called:: Was contact made?: Yes If yes, spoke with:: levy Time called:: 07:30 06/24/17 20:49 Occupational Therapy Evaluate and Treat [CONS] Routine Comment: Reason For Exam: Neuro deficits Physical Therapy Evaluation and Treat [CONS] Routine Comment: Reason For Exam: Neuro deficits 06/26/17 09:37 Speech Therapy Evaluation and Treat [CONS] Routine Reason For Exam: nonverbal/CVA Primary care physician: PIPE CAULKER Hospitalization Reason for admission: cva Condition: Stable Hospital course: This is a 56-year-old female presented through the emergency department with significant past medical history of myocardial infarction and mitral valve prolapse with complaints of suddenly having the inability to talk. Patient was able to move all extremities and communicate by writing. Patient had no apparent lateralizing signs or symptoms. No tonic-clonic movements. Patient's blood glucose was noted be 150. The ER physician did not find the patient's presentation consistent with a stroke syndrome. Tele-neurologist was consulted and felt that the patient may have alexia without agraphia. Patient was examined with the robot and his conclusion was that the presentation was really quite. He did not think that this was consistent with stroke. The risks and benefits of TPA were discussed with the patient. The patient apparently strongly refused TPA according to the records while understanding the risk and benefits. However, The patient was admitted for a complete standard stroke workup. The patient underwent echocardiogram which was found to be essentially normal. MRI of the brain is found to be negative. Carotid ultrasounds also negative. Patient was seen by physical therapy and consultation will recommend a rolling walker, 3 - 1 commode and home health PT. Patient's is felt to have received maximal hospital benefit. Dedicated discharge time 35 minutes. Disposition: DC-01 TO HOME OR SELFCARE Time spent for discharge: 35 - Discharge Diagnoses (1) Altered mental status Status: Acute Qualifiers: Altered mental status type: unspecified Coma depth: C Coma timing: C Qualified Code(s): R41.82 - Altered mental status, unspecified (2) CVA (cerebral vascular accident) Status: Acute Qualifiers: CVA mechanism: C Precerebral and cerebral artery: P Laterality of affected vessel: unspecified (3) Speech disturbance Status: Acute Qualifiers: Speech disturbance type: unspecified speech disturbance Qualified Code(s): R47.9 - Unspecified speech disturbances Core Measure Documentation - Palliative Care Palliative Care/ Comfort Measures: Not Applicable - Core Measures Any of the following diagnoses?: stroke - Stroke Discharge Requirements Statin for LDL = or >70 mg/dl on DC: Yes Anticoag for atrial fib/atrial flutter: No Reason for no anticoag for AF/F on DC: Not Indicated Antithrombotic for ischemic stroke: Yes Exam - Constitutional Vitals: Temp Pulse Resp BP Pulse Ox 97.9 F 63 18 111/59 98 06/27/17 04:00 06/27/17 04:00 06/27/17 04:00 06/27/17 04:00 06/26/17 20:00 General appearance: Present: no acute distress, well-nourished - EENT Eyes: Present: PERRL ENT: hearing intact, clear oral mucosa - Neck Neck: Present: supple, normal ROM - Respiratory Respiratory effort: normal Respiratory: bilateral: CTA - Cardiovascular Heart Sounds: Present: S1 & S2. Absent: rub, click - Extremities Extremities: pulses symmetrical, No edema Peripheral Pulses: within normal limits - Abdominal General gastrointestinal: Present: soft, non-tender, non-distended, normal bowel sounds Female genitourinary: Present: normal - Integumentary Integumentary: Present: clear, warm, dry - Musculoskeletal Musculoskeletal: gait normal, strength equal bilaterally - Psychiatric Psychiatric: appropriate mood/affect, intact judgment & insight - Neurologic Neurologic: CNII-XII intact, moves all extremities Plan Activity: no restrictions Weight Bearing Status: Full Weight Bearing Diet: low fat, low cholesterol, low salt Special Instructions: home health RN Durable Medical Equipment Needed Upon Discharge: Walker-Rolling, Bedside Commode Follow up with: RENE PAUL MD [Primary Care Provider] - 3-5 Days MAHESH ANDINO MD [Staff Physician] - 7 Days Prescriptions: Aspirin [Aspirin TAB] 325 mg PO QDAY #30 tablet Meclizine [Antivert] 25 mg PO Q8H PRN #30 tablet PRN Reason: Vertigo Simvastatin [Zocor TAB] 20 mg PO QHS #30 tablet
[2017-06-27] MEDS: LOPRESSOR PO SCH (10:28)
[2017-06-27] MEDS: PEPCID PO SCH (10:29)
[2017-06-27] MEDS: LOVENOX SUB-Q SCH (10:29)
[2017-06-27] MEDS: ASPIRIN PO SCH (10:30)
--- NOTE | 2017-06-27 15:47 | Vascular Lab Report ---
CAROTID DUPLEX STUDY: RIGHT PSVEDV CCA PROX:[id number] CCA DIST:[id number] ICA PROX:7133 ICA MID:[id number] ICA DIST:[id number] ECA: 86 VERT: 44 18 LEFT PSVEDV CCA PROX:7623 CCA DIST:5819 ICA PROX:8635 ICA MID:[id number] ICA DIST:[id number] ECA: 66 VERT: 63 25 REASON FOR EXAM: Aphasic/stroke. COMMENTS ON THE RIGHT: Doppler frequency analysis is consistent with 16 to 49 percent diameter reduction of the internal carotid artery. Minimal amount of plaque is seen. The common carotid artery is patent. The external carotid artery is patent. The vertebral artery has antegrade flow. COMMENTS ON THE LEFT: Doppler frequency analysis is consistent with 16 to 49 percent diameter reduction of the internal carotid artery. Minimal amount of plaque is seen. The common carotid artery is patent. The external carotid artery is patent. The vertebral artery has antegrade flow. IMPRESSION: Less than 50% diameter reduction in the internal carotid arteries bilaterally. Consider repeat carotid artery duplex in 12 months.
[2017-06-27 16:04] VITALS: BP 130/71
== END 2017-06-27 16:39 | disposition home or self-care (01) | DRG 64 ==
LOC: ED 17:29 → 3A 20:46
PROVIDERS: ADMIT Internal Medicine; ATTEND Hospitalist
DX: I63.9 Cerebral infarction, unspecified (principal); G93.40 Encephalopathy, unspecified; I34.1 Nonrheumatic mitral (valve) prolapse; R47.89 Other speech disturbances; Z88.8 Allergy status to other drugs, medicaments and biological substances; I25.2 Old myocardial infarction; Z53.29 Procedure and treatment not carried out because of patient's decision for other reasons; J98.11 Atelectasis
CPT/HCPCS: 36415; 70450; 70544; 70551; 71010; 80048; 80053; 80061; 80074; 80307; 80320; 81001; 82140; 82550; 82962; 84443; 84484; 85007; 85025; 85610; 85730; 93005; 93010; 93306; 93880; 95819; 99406; G0480; J1650; J7042